=== PATIENT | female | born 1960 | race Caucasian/White ===

== ENCOUNTER 2023-04-06 08:25 | Outpatient (CLI) | payer BC, SELFPAY ==
--- OUTSIDE RECORDS SUMMARY | 2023-04-06 08:28 | XMS_ITS | Continuity of Care Document ---
Author Name Unknown Organization [facility] enter Address [address] [place] [id number] Phone Care Team Providers Care Search Consultant Name Role Phone [facility] Unavailable Unava ilable Procedures Procedure Date MAJOR JOINT OR BURSA INJ WITH ULTRASOUND Advance Directives Directive Yes / No Effective Date File Name No Information Encounters Encounter Description Practice Location Reason(s) For Visit Diagnoses Date Provider Providers Copied on Encounter [facility], [address] [place] [address], [id number], tel:[phone] [facility] No Information [facility]. [address] [place] [address], [id number], . tel:[phone] Referring Provider: Nicole Vasquez, [address] [place], [address] . tel:[phone] Family History Family Member Type Diagnosis Age At Onset No Information Payers Payer name Insurance type Covered republican ID Authoriza tion(s) [facility] [id number] Social History Type Description Quantity Date Captured Comments Sex Female Smoking Status No Information Chief Complaint And Reason For Visit No Information Reason For Referral Reason For Referral No Information History Of Present Illness Encounter Date Complaint History Of Prese nt Illness No Information Functional Status Date Functional Assessmen t No Information Instructions Date Instruction Additional Infor mation No Information Assessments Type Assessment Date No Information Patient Care Teams Name Effective Dates (start - stop) Status Members No Information
--- OUTSIDE RECORDS SUMMARY | 2023-04-06 08:28 | XMS_ITS | Continuity of Care Document ---
Author Name Unknown Organization [facility] Address [address] [facility] [place] [address] Phone Care Team Providers Care Personal Trainer Name Role Phone Katelynn CNPStephie Unavailable Unavailab le Allergies, Adverse Reactions, Alerts Substance Reaction Status Criticality sulfite DiarrheaVomiting Active No Informat ion amitriptyline Memory impairment Active No Inform ation erythromycin base Dizziness Active No Informa tion Medications Medication Instructions Dosage Effective Dates (start - stop) Status Comments CYCLOBENZAPRINE HCL 10MG TABS TAKE ONE TABLET BY MOUTH AT BEDTIME NEEDED - Active prednisone 10 mg tablet take 1 tablet by oral route every day as needed 10 MG - Active Emgality Pen 120 mg/mL subcutaneous pen injector inject (120MG) by subcutaneous route every month in the abdomen, thigh, outer upper arm, or buttocks 120 MG - Active Lexapro 10 mg tablet take 3 tablet by or al route every day 30 MG - Active Plavix 75 mg tablet take 1 tablet by ora l route every day 75 MG - Active rizatriptan 10 mg tablet take 1 tablet b y oral route once, may repeat at 2 hour intervals; do not exceed 30 mg in 24 hours 10 MG - Active aspirin 81 mg chewable tablet chew 1 tablet by oral route every day 81 MG - Active Procedures Procedure Date Foll-up eval q3mo opiod tx OFFICE/OUTPATIENT VISIT, EST LT Major Joint Or Bursa Inj With Ultraso und Drug test def 8-14 classes Drug Urine Toxology With Chromatography Foll-up eval q3mo opiod tx OFFICE/OUTPATIENT VISIT, NEW Advance Directives Directive Yes / No Effective Date File Name No Information Encounters Encounter Description Practice Location Reason(s) For Visit Diagnoses Date Provider Providers Copied on Encounter [facility], [address] [place] [address], [id number] , [place] [phone] [facility] [place] No Information 3 Katelynn Card. [address], [address], [id number], [place]. [phone] [facility], [address] [place] [address], [id number] , [place] tel:[phone] [facility] [place] No Information 3 Katelynn Card. [address] [address], [address], [id number], [place]. tel:[phone] OFFICE/OUTPA TIENT VISIT, EST [facility], [address] [place] [address], [id number] , [place] [phone] [facility] Widespread pain (chief complaint) MigraineTrochant kristina bursitis, left hipPostlaminecto my syndrome, not elsewhere classifiedLong term (current) use of opiate analgesic 3 Katelynn Card. [address] [address], [address], [id number], [place]. tel:[phone] Referring Provider: April Garza [address], [address]. tel:[phone] [facility], [address] [place] [address], [id number] , [place] tel:[phone] [facility] [place] Trochanteric bursitis, left hip 3 Pedro Rivera. [address] [place], [place], [id number], [place]. tel:[phone] Referring Provider: April Garza [address] [place], [address]. tel:[phone] [facility], [address] [place], [place], [id number] , [place] tel:[phone] [facility] No Information 3 Katelynn Stephie. [address], [id number], [place]. tel:[phone] Referring Provider: [facility] [address], [address]. tel:[phone] OFFICE/OUTPA TIENT VISIT, [facility], [address] [place], [place], [id number] , [place] tel:[phone] [facility] Widespread pain (chief complaint) Postlaminectomy syndrome, not elsewhere classifiedLong term (current) use of opiate analgesicEncount er for therapeutic drug level monitoringTrocha nteric bursitis, left hipMigraine 3 Katelynn Card. [address], [id number], [place]. tel:[phone] Referring Provider: Milo Faust [address], [address]. tel:[phone] Family History Family Member Type Diagnosis Age At Onset No Information Payers Payer name Insurance type Covered democrat ID Authoremmaa ticaitlyn(s) [facility] [id number] Social History Type Description Quantity Date Captured Comments Sex Female Smoking Status No Information Chief Complaint And Reason For Visit No Information Reason For Referral Reason For Referral No Information Plan Of Treatment Date Type Action Status Goal HPV. Due on due Goal Height. Due on d ue Goal Review Allergy List. Due on due Goal Zoster vaccine (1st). Due on due Goal FIT. Due on due Goal PHQ-9. Due on du e Goal Tobacco Use. Due on due Goal Unhealthy drug use screening . Due on due Goal Hepatitis C screening. Due o n due Goal FIT-DNA. Due on due Goal CT-Colonography. Due on due Goal Lipid panel. Due on due Goal Weight. Due on d ue Goal Update Social History. Due o n due Goal Medication Reconciliation. D ue on due Goal SOFTWARE SUPPORT ENGINEER Scanned. Due on due Goal AST (SGOT). Due on due Goal Order Annual PT. Due on due Goal OARS. Due on due Goal CROP AND SOIL TECHNICIAN Paperwork. Due on due Goal UDT. Due on due Goal Creatinine. Due on due Goal ALT (SGPT). Due on due Goal AST (SGOT). Due on due Goal Creatinine. Due on due Goal OARS. Due on due Goal UDT. Due on due Goal CROP AND SOIL TECHNICIAN Paperwork. Due on due Goal ALT (SGPT). Due on due Goal SOFTWARE SUPPORT ENGINEER Scanned. Due on due Goal Order Annual PT. Due on due Goal PHQ-9. Due on du e Goal OARS. Due on due Goal Order Annual PT. Due on due Goal AST (SGOT). Due on due Goal SOFTWARE SUPPORT ENGINEER Scanned. Due on due Goal Lipid panel. Due on due Goal FIT-DNA. Due on due Goal Review Allergy List. Due on due Goal Unhealthy drug use screening . Due on due Goal Weight. Due on d ue Goal Update Social History. Due o n due Goal Hepatitis C screening. Due o n due Goal FIT. Due on due Goal Medication Reconciliation. D ue on due Goal Zoster vaccine (1st). Due on due Goal Tobacco Use. Due on due Goal HPV. Due on due Goal CT-Colonography. Due on due Goal ALT (SGPT). Due on due Goal Creatinine. Due on due Goal UDT. Due on due Goal CROP AND SOIL TECHNICIAN Paperwork. Due on due Goal Height. Due on d ue Goal Height. Due on d ue Goal PHQ-9. Due on du e Goal Lipid panel. Due on 023 due Goal FIT-DNA. Due on due Goal Review Allergy List. Due on due Goal Unhealthy drug use screening . Due on due Goal Weight. Due on d ue Goal Update Social History. Due o n due Goal Hepatitis C screening. Due o n due Goal FIT. Due on due Goal Medication Reconciliation. D ue on due Goal Zoster vaccine (1st). Due on due Goal Tobacco Use. Due on 023 due Goal HPV. Due on due Goal CT-Colonography. Due on due History Of Present Illness Encounter Date Complaint History Of Prese nt Illness Widespread pain Severity level i s 3. Duration: chronic. The client describes it as sharp and tingling. It occurs occasionally. The problem is fluctuating. Symptom is aggravated by housework, lifting, lying down, movement and stairs. Relieving factors include sitting, massage, rest, heat, cold, Rx Meds and PT. Pertinent negatives include diarrhea, fatigue, fever and incontinence (urinary). Comments: Joellen ross s a 62 y/o female here for initial follow up for widespread pain. Pain is located in her low back, and L leg, hip, and groin. She also has daily migraines. Her primary complaint today is her back and left hip - pain radiates from her low back, across her hip, down her anterior thigh and ends at her ankle. Will be having colostomy surgery on 10/12/2022. She intends to have loosening screws at L1-[address] Matthew De La Rosa after the colostomy surgery. Her most recent Hgb was 10.2 and may be having an iron infusion. Will be following up with hematology. S/p L GTB injection 09/23/2022 provided 85% pain relief and has increased her mobility. Thinks the pain has slightly moved up from her L hip more into her lower back- over SIJ area. She is currently managed on hydrocodone/acet 5-325mg BID, which provides moderate relief and decreases her pain from 8/10 to 3/10. Tends to only take the hydrocodone at night as it causes drowsiness. Most recent UDT from 09/18/22 was (+) for oxymorphone (unexpected), hydrocodone (expected), and hydromorphone (expected). States today she had used a couple of tablets of oxycodone from her previous back surgery post-op medication. There is an oxcodone rx on her SOFTWARE SUPPORT ENGINEER within the last year. Takes flexeril occasionally, although it doesn't provide much relief. No other concerns today. Widespread pain Severity level i s 9. Duration: chronic. The client describes it as sharp, burning, numbness and shooting. It occurs persistently. The problem is worsening. Symptom is aggravated by bending, running, sitting, standing, walking and movement. Relieving factors include sitting, massage, rest, cold, Rx Meds and PT. Pertinent negatives include diarrhea, dyspnea, fever and incontinence (urinary). Comments: This i s my first evaluation of the patient. Outside records are not available for review.Joellen is a 62 y/o female here for initial consult for widespread pain, referred by Dr. April Garza through [facility]. Pain started suddenly many years ago and is located in her low back, and L leg, hip, and groin. L hip is the primary/worst pain. She also notes daily migraines since February 2021, in which she follows neurology for. Her primary complaint today is her back and left hip pain- pain radiates from her low back, across her hip, down her anterior thigh and ends at her ankle. She describes pain as burning, deep, numb, sharp, shooting, and stabbing and rates the pain severity 9/10.Joellen has had 5 lumbar surgeries/fusions and is fused L1-L5. She follows with Dr. Matthew De La Rosa at [facility] for her surgeries. Notes recent finding of loosening screws at L1-L2, in which she intends to have removed soon. She also mentions new onset of L hip pain in Jun 2022, making it difficult to walk, sleep, and perform daily activities. No fractures were found. Joellen had cervical cancer several years ago and had intense, direct radiation that may have caused worsening of her L hip pain and back issues.She has tried nerve blocks/MBB, ESIs, and RFAs, without lasting relief. She has been in PT since August 2022, without much relief so far. She has previously tried lyrica 75mg BID, gabapentin 900mg/day, oxy/acet 5-325mg, zolpidem 5mg, amitriptyline, ibuprofen, naproxen, acetaminophen, trazodone 50mg, topiramate, topical creams, medical patches, Ajovy, and flexeril. Finds flexeril to be helpful and would like to continue it. Gabapentin didn't provide relief and Lyrica and amitriptyline caused memory loss/confusion.She is currently managed on hydrocodone/acet 5-325mg BID, Emgality 120mg, lexapro 10mg, plavix 75mg, prednisone 10mg prn, rizatriptan, and aspirin 81mg. 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 No other concerns today. Functional Status Date Functional Assessmen t No Information Instructions Date Instruction Additional Infor mation No Information Assessments Type Assessment Date No Information Patient Care Teams Name Effective Dates (start - stop) Status Members No Information
== END 2023-04-06 08:26 | disposition home or self-care (01) ==
LOC: INJ CL 08:27
PROVIDERS: PCP Family Medicine; Visit Provider Family Medicine
DX: M54.16 Radiculopathy, lumbar region (principal); M51.25 Other intervertebral disc displacement, thoracolumbar region
CPT/HCPCS: 64479; 64483; J1100; Q9966